=== PATIENT | male | born 1995 | race Caucasian/White ===

== ENCOUNTER 2024-03-25 12:55 | Emergency (ER) | payer OTHER, SELFPAY ==
[2024-03-25 12:58] VITALS: BP 149/86; PULSE 70; RESP 16; TEMP 36.6; O2SAT 99
--- NOTE | 2024-03-25 13:15 | W.ED.GENAD ---
Discharge Plan Disposition Patient Disposition: Home Condition: Stable Discharge Details Clinical Impression: Lumbar back sprain Primary Care Provider: Shelbie,Local ED Provider: Orestes Blacno Home Meds and New Rx's Prescriptions: New cyclobenzaprine 10 mg tablet 10 mg PO TID PRNQty: 20 0RF Discharge Instructions Additional Instructions: You likely sprained the muscles in your back and this usually heals over couple weeks You can take 600 mg of ibuprofen and 1000 mg of acetaminophen every 6 hours as needed. Follow-up with your primary care provider or express care if you are not improving in 2 weeks If you feel more ill or have new symptoms such as difficulty urinating or high fevers return to the emergency department for repeat evaluation If you do take the cyclobenzaprine be aware that it can make you drowsy so do not operate heavy machinery or drink alcohol with it HPI General Mode of arrival: ambulatory. Date/Time Provider Initiated Documentation: 03/25/24 12:55. Limitations to Documentation: no limitations. Information obtained by: patient. History of Present Illness 28 year old M presents to the emergency department with the chief complaint of back pain, described as moderate, Quality is described as aching, Patient reports no radiation. Patient started experiencing this day(s) (1) and it has been constant. Rest improves symptom(s), Movement worsens symptoms . Patient notes no other symptoms.. Patient did receive the following treatments prior to arrival, none Related Data Home Medications ?Medication ?Instructions ?Recorded ?Confirmed cyclobenzaprine 10 mg tablet 10 mg PO TID PRN #20 tabs 03/25/24 Previous Rx's ?Medication ?Instructions ?Recorded cyclobenzaprine 10 mg tablet 10 mg PO TID PRN #20 tabs 03/25/24 Allergies Allergy/AdvReac Type Severity Reaction Status Date / Time Penicillins Allergy Mild RASH Unverified 06/06/14 10:07 General Stated Complaint: Nk/Back Pain MARISSA: 3 Review of Systems All systems reviewed & are unremarkable except as noted in HPI and below Constitutional Constitutional: Denies chills, Denies fever(s) and Denies weakness Cardiovascular Cardiovascular: Denies chest pain and Denies dyspnea Respiratory Respiratory: Denies cough and Denies dyspnea Gastrointestinal Gastrointestinal: Denies abdominal pain, Denies nausea and Denies vomiting Musculoskeletal Musculoskeletal: Denies joint swelling Neurologic Neurologic: Denies weakness Psychiatric Psychiatric: Denies depression Exam Const General: no acute distress Orientation: alert [facility] Head: normal to inspection Ears: external ears normal General nose exam: external nose normal Mouth: moist mucous membranes Eyes General: appearance normal, both eyes and all related structures Neck Neck: normal visual inspection Resp Effort & Inspection: normal respiratory effort and able to speak in complete sentences Cardio Rate: regular rate GI Palpation: soft and nontender Back/Spine/Pelvis Back: no CVA tenderness Skin General skin exam: no rashes or lesions noted Neuro General: patient alert and patient oriented x3 Extrem General: normal to inspection Psych Mental Status: mental status grossly normal Course Vital Signs Vital signs: Vital Signs Temperature 36.6 C 03/25/24 12:58 Pulse 70 03/25/24 12:58 Respiratory Rate 16 03/25/24 12:58 Blood Pressure 149/86 H 03/25/24 12:58 Pulse Oximetry 99 03/25/24 12:58 Temperature 36.6 C 03/25/24 12:58 Temperature Source Temporal Artery Scan 03/25/24 12:58 Pulse 70 03/25/24 12:58 Respiratory Rate 16 03/25/24 12:58 Blood Pressure 149/86 H 03/25/24 12:58 Blood Pressure Position Sitting 03/25/24 12:58 Pulse Oximetry 99 03/25/24 12:58 Oxygen Delivery Method Room Air 03/25/24 12:58 Oxygen Flow Rate 0 03/25/24 12:58 Medical Decision Making 28-year-old male with no significant past medical history comes in with lumbar back pain. He says he was at work working on a tire when he twisted his back and had pain. He denies falls or other injuries. He has not had any urinary retention or loss of bowel function. He otherwise feels well, denies any IV drug use and has not had any fevers. He has not had any weakness. He says bending forward makes the pain worse. He localizes it to the bilateral paraspinous muscles over the lumbar spine. He has no visible palpable deformities. No saddle anesthesia, intact distal sensation and pulses. His exam and history are consistent with a lumbar strain, will have him start ibuprofen and Tylenol and also provide muscle relaxers. He has no findings on exam or history to suggest fracture, cauda equina, spinal epidural abscess, osteomyelitis so do not feel any imaging indicated. He will follow-up with his PCP if not improving and return precautions given Differential Diagnosis Differential Diagnosis: Back strain, large muscle spasm Quality:SDOH Health Related Social Needs: No Data to Display PFSH All Active Problems (Updated 03/25/24 @ 13:19 by Orestes Blanco MD) Lumbar back sprain (Acute) Social History Smoking risk assessment performed?: No
== END 2024-03-25 13:41 | disposition home or self-care (01) ==
PROVIDERS: Emergency Provider Emergency Medicine
DX: S33.5XXA Sprain of ligaments of lumbar spine, initial encounter (principal); X50.1XXA Overexertion from prolonged static or awkward postures, initial encounter; Y93.89 Activity, other specified; Y92.89 Other specified places as the place of occurrence of the external cause; Y99.0 Civilian activity done for income or pay
CPT/HCPCS: 99283